=== PATIENT | male | born 1985 | race Caucasian/White ===

== ENCOUNTER → 2020-03-15 | Outpatient (CLI) | payer OTHER | LOC: LAB.O 16:06 | PROVIDERS: ATTEND Family Medicine | DX: E29.9 Testicular dysfunction, unspecified (principal) ==

== ENCOUNTER → 2020-03-28 | Outpatient (CLI) | payer OTHER | LOC: GMAM 10:36 | PROVIDERS: ATTEND Family Medicine | DX: E29.9 Testicular dysfunction, unspecified (principal); R53.83 Other fatigue; R73.09 Other abnormal glucose; Z12.5 Encounter for screening for malignant neoplasm of prostate ==